=== PATIENT | male | born 1985 | race Caucasian/White ===

== ENCOUNTER 2016-10-21 06:54 | Emergency (ER) | payer SELFPAY ==
[~2016-10-21] VITALS: Ht 172.7 cm; Wt 70.3 kg
[~2016-10-21 06:54] MED LIST: AMOX500C2 PO; HYDR-757 PO
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
[2016-10-21] MEDS ORDERED: CLIN300C11 PO (07:19)
[2016-10-21] MEDS ORDERED: HYDR-3812 PO (07:19)
[2016-10-21 07:22] VITALS: BP 134/93
== END 2016-10-21 07:22 | disposition home or self-care (01) ==
LOC: EDUNIT# 06:54 → ER 06:57
DX: K08.9 Disorder of teeth and supporting structures, unspecified (principal)
CPT/HCPCS: 99282

== ENCOUNTER 2018-06-13 17:39 | Emergency (ER) | payer SELFPAY ==
[~2018-06-13 17:39] MED LIST changes: +ACHD5005 PO; +CLIN300C11 PO; +HYDR-4226 PO; -HYDR-757 PO
--- OUTSIDE RECORDS SUMMARY | 2018-06-13 21:59 | XMS REPORT ---
Author Author HAMILTON DIEHL [facility] Address Unknown Care Team Providers Care Restaurant Host/Hostess Name Role Phone HAMILTON DIEHL Unavailable PROBLEMS Unknown Problems ALLERGIES No Known Allergies SOCIAL HISTORY Never Assessed PLAN OF CARE Activity Details Follow Up prn Reason:PROPHY VITAL SIGNS Blood pressure systolic 143 mmHg 2017-01-18 Blood pressure diastolic 94 mmHg 2017-01-18 MEDICATIONS No Known Medications RESULTS No Results PROCEDURES Procedure Date Ordered Result Body Site EXTRAC ERUPTED TOOTH/EXPOSED ROOT January 18, 2017 IMMUNIZATIONS No Known Immunizations
== END 2018-06-13 18:15 | disposition left against medical advice (07) ==
LOC: EDUNIT# 17:39 → ER 17:40
DX: R06.00 Dyspnea, unspecified (principal); E86.0 Dehydration